=== PATIENT | female | born 1945 | race Caucasian/White ===

== ENCOUNTER → 2018-01-28 12:25 | Outpatient (CLI) | payer MEDICARE, OTHER ==
[2010-02-25 17:36] VITALS: BMI 34.4
== END | disposition home or self-care (01) ==
LOC: D.US 12:25
DX: M79.605 Pain in left leg (principal)

== ENCOUNTER → 2018-02-04 22:10 | Outpatient (CLI) | payer MEDICARE, OTHER ==
[2010-02-25 17:36] VITALS: BMI 34.4
== END | disposition home or self-care (01) ==
LOC: D.MAMMO 11:00
DX: R92.8 Other abnormal and inconclusive findings on diagnostic imaging of breast (principal)

== ENCOUNTER 2018-05-29 14:02 | Emergency (ER) | payer MEDICARE, OTHER ==
[~2018-05-29] VITALS: Ht 162.6 cm; Wt 90.9 kg
[2018-05-29 14:11] VITALS: Ht 162.6 cm; Wt 90.9 kg
[2018-05-29] MEDS ORDERED: TOPROL XL50 MG PO (14:17)
[2018-05-29] MEDS ORDERED: SYNTHROID112 MCG PO (14:18)
[2018-05-29] MEDS ORDERED: LOTENSIN40 MG PO (14:18)
[2018-05-29] MEDS ORDERED: NORVASC10 MG PO (14:18)
[2018-05-29] MEDS ORDERED: BAYER CHEWABLE81 MG PO (14:19)
[2018-05-29] MEDS ORDERED: ISOSORBIDE MONO30 M1 PO (14:19)
[2018-05-29] MEDS ORDERED: VITAMIN B-122500 MCG PO (14:20)
[2018-05-29] MEDS ORDERED: CO Q-10200 MG PO (14:20)
[2018-05-29] MEDS ORDERED: MULTI-DAY VITAM1 TAB PO (14:20)
[2018-05-29] MEDS ORDERED: XARELTO20 MG PO (14:21)
[2018-05-29 17:13] VITALS: BP 147/93
== END 2018-05-29 17:14 | disposition home or self-care (01) ==
LOC: D.ER 14:02
DX: M79.662 Pain in left lower leg (principal); I10 Essential (primary) hypertension